=== PATIENT | male | born 1995 | race Caucasian/White ===

== ENCOUNTER 2021-03-20 16:42 | Outpatient (REF) | payer OTHER, SELFPAY | END 2021-03-20 16:43 | disposition home or self-care (01) | LOC: HO.LNP 16:42 | PROVIDERS: Visit Provider Physician Assistant Medical | DX: Z20.822 Contact with and (suspected) exposure to COVID-19 (principal) | CPT/HCPCS: U0003; U0005 ==

== ENCOUNTER 2021-04-05 07:45 | Emergency (ER) | payer SELFPAY ==
--- NOTE | ~2021-04-05 | US_ITS ---
EXAMINATION: US ABDOMEN LIMITED CLINICAL INFORMATION: Right upper quadrant pain worse with eating. COMPARISON: None TECHNIQUE: Real-time imaging of the right upper quadrant abdominal viscera. FINDINGS: PANCREAS: Visualized portions of the increase unremarkable, the tail is obscured by overlying bowel gas. LIVER: The liver is normal in size. The liver contour is normal. Slightly increased hepatic echogenicity suggesting hepatic steatosis. No focal hepatic lesion. There is no intrahepatic biliary duct dilatation seen. GALLBLADDER: Normal. The gallbladder is physiologically distended without evidence of stones, sludge, polyps, wall thickening or pericholecystic fluid. Sonographic Rivas sign is negative. COMMON BILE DUCT: Normal in caliber measuring 0.3 cm in diameter. RIGHT KIDNEY: Normal. No hydronephrosis. No renal calculi or focal parenchymal lesions. The kidney measures 9.1 cm in maximum dimension. FREE FLUID: None. US/US abdomen limited IMPRESSION: Slightly increased hepatic echogenicity suggesting hepatic steatosis.
[2021-04-05 08:18] VITALS: BP 126/86; PULSE 81; RESP 16; TEMP 36.9; O2SAT 98; BMI 30.2
--- NOTE | 2021-04-05 15:01 | ED_ITS ---
HPI - Abdominal Pain General Chief Complaint: Abdominal Pain Stated Complaint: ABD PAIN Time Seen by Provider: 04/05/21 14:59 Source: patient Mode of arrival: ambulatory Limitations: no limitations History of Present Illness HPI narrative: 25-year-old male past medical history significant for hepatic steatosis, HTN, anxiety, IBS presents the emergency department with right upper quadrant pain x4 days progressively worsening with associated nausea. Patient tells me that the pain is worse with eating and drinking. He tells me that he has a remote history of heavy alcohol use. He has not drank for the past year. He also has a history of prescription medication abuse. Patient tells me that the pain is dull, intermittent and at times it is severe. He tells me right now the pain is a 4 5/10. He denies chest pain, shortness of breath, fevers, chills, vomiting, headache, dizziness, dysuria, hematuria, hesitancy, urgency. MD elicited complaint: abdominal pain Pertinent past history: other (Hepatic steatosis, alcohol abuse) Onset (ago): day(s) (4) Pain Consistency: intermittent Location: RUQ Severity: mild Pain scale (0-10): 5 Quality: sharp and dull Radiation: none Migration to: no migration Exacerbating factors: nothing Relieving factors: nothing Associated symptoms: nausea Related Data Home Medications Medication Instructions Recorded Confirmed lisinopril 40 mg tablet 40 mg PO DAILY 03/20/21 03/20/21 metoprolol succinate 50 mg 75 mg PO DAILY 03/20/21 03/20/21 tablet,extended release 24 hr omeprazole 20 mg capsule,delayed 20 mg PO DAILY 03/20/21 03/20/21 release Previous Rx's Medication Instructions Recorded ondansetron 4 mg disintegrating 4 mg PO Q8H PRN #15 tab 04/05/21 tablet Allergies Allergy/AdvReac Type Severity Reaction Status Date / Time No Known Allergies Allergy Verified 03/20/21 12:36 Review of Systems Review of Systems Constitutional : No Weight loss, No Fever, No Chills, No Fatigue, No Malaise ENT/Mouth : No sore throat, No Rhinorrhea Eyes: No Eye Pain, No Swelling, No Redness Cardiovascular : No Chest Pain, No SOB, No Dyspnea on Exertion, No Orthopnea, No Edema, No Palpitations Respiratory : No Cough, No Sputum, No Wheezing Gastrointestinal : + Nausea, No Vomiting, No Diarrhea, No Constipation, + abdominal Pain, No Hematochezia, No Melena Genitourinary : No Dysuria, No Urinary Frequency, No Hematuria, Musculoskeletal : No joint pain, No Myalgias, No Joint Swelling Skin : No Skin Lesions, No rash Neuro : No Weakness, No Numbness, No Dizziness, No Headache Psych : No Anxiety/Panic, No Depression All other systems reviewed and are negative Yes all other systems are reviewed and are negative Physical Exam Vital Signs: Vital Signs: Last Vital Signs Temp 98.6 F 04/05/21 15:23 Pulse 81 04/05/21 15:23 Resp 18 04/05/21 15:23 BP 132/69 04/05/21 15:23 Pulse Ox 100 04/05/21 15:23 BMI result Body Mass Index 30.2 Vss Appearance: Alert.? Oriented X3.? No acute distress.? Head: Normocephalic, atraumatic, no step-offs or deformities Eyes: Pupils equal, round and reactive to light.? ENT: Pharynx normal.? Neck: Normal inspection.? Neck supple.? CVS: Normal heart rate and rhythm.? Pulses normal.? Respiratory: No respiratory distress.? Breath sounds normal.? Abdomen: Soft and + pain with palpation of right upper quadrant. Neagtive R osving and McBurney's point. Skin: Skin warm and dry.? Normal skin color.? Normal skin turgor.? Extremities: No lower extremity edema.? No calf ttp. 5/5 strength to bilateral upper and lower extremities Back: No midline tenderness, no C-spine tenderness, full range of motion, no CVA tenderness bilaterally Neuro: Oriented X 3.? No motor deficit.? No sensory deficit. Course Reevaluation(s) Reevaluation #1: A slight normocytic anemia is noted, no leukocytosis, no acute electrolyte abnormalities. Transaminases normal. Lipase normal. Urine is clean. Patient's ultrasound significant for hepatic steatosis. Negative Rivas sign, no signs of cholecystitis or cholelithiasis. Patient tells me that he is not had nausea since he was given Zofran. He reports that his pain has improved. He tells me that he thinks this started because he was taking NyQuil daily when he had COVID which may have caused inflammation. I have advised patient to follow-up with GI. I have advised him on warning signs and have given him strict return precautions that have been outlined on his discharge. Patient's history and physical examination are not consistent with acute appendicitis, negative Rovsing negative McBurney's point, negative obturator and psoas. Patient's CRP is normal. No pain to palpation to the right lower quadrant. Patient does not report anorexia, fevers or chills. At this time I feel comfortable with discharge home Time: 16:36 MDM - Abdominal Pain MDM Narrative Medical decision making narrative: 1520 25 yo male pmhx alcohol abuse, prescription pain pill abuse, hepatic steatosis presents to ED w/ RUQ pain & nausea, worse with eating. PE- pain w/ palpation to RUQ . Patient's history and physical examination not consistent with acute cholecystitis or acute appendicitis. Plan labs, US RUQ, UA Medical Records Attestation: I reviewed the patient's medical records. Lab Data Attestation: I reviewed the patient's lab results. Result diagrams: 04/05/21 15:14 04/05/21 15:14 Labs: Lab Results 04/05/21 04/05/21 04/05/21 Range/Units 15:14 15:14 15:31 WBC 7.2 (4.8-10.8) X10*3/uL RBC 4.49 L (4.60-5.80) X10*6/uL Hgb 13.8 L (14.0-18.0) g/dl Hct 40.8 L (42.0-52.0) % MCV 90.9 (80.0-98.0) fL MCH 30.7 (27.0-33.0) pg MCHC 33.8 (31.0-36.0) g/dl RDW 11.8 (11.0-16.0) % Plt Count 368 (160-400) X10*3/uL MPV 9.1 L (9.4-12.4) fL Immature Gran % (Auto) 0.6 H (0.0-0.4) % Neut % (Auto) 53.7 (45-73) % Lymph % (Auto) 36.8 (20-40) % [place] % (Auto) 7.1 (2-11) % Eos % (Auto) 1.5 (0-4) % Baso % (Auto) 0.3 (0-2) % Lymph # (Auto) 2.6 (1.2-4.9) X10*3/uL [place] # (Auto) 0.5 (0.1-1.2) X10*3/uL Eos # (Auto) 0.1 (0.0-0.4) X10*3/uL Baso # (Auto) 0.0 (0.0-0.2) X10*3/uL Abs Immat Gran (auto) 0.04 H (0.00-0.03) X10*3/uL Absolute Neuts (auto) 3.9 (2.0-8.3) x10*3/uL Absolute Nucleated RBC 0.000 (0.0-0.012) X10*3/uL Nucleated RBC % (auto) 0.0 (0.0-0.2) /100WBC Sodium 141 (135-145) mmol/L Potassium 4.0 (3.3-5.1) mmol/L Chloride 106 (96-108) mmol/L Carbon Dioxide 25 (22-29) mmol/L Anion Gap 14 (12-20) BUN 13 (9-16) mg/dL Creatinine 0.77 (0.5-1.4) mg/dL Estim Creat Clear Calc 146.3 Estimated GFR > 60 Random Glucose 91 (60-115) mg/dL Calcium 9.6 (8.4-10.2) mg/dL Magnesium 2.3 (1.6-2.6) mg/dL Total Bilirubin 0.5 (0.0-1.0) mg/dL AST 20 (5-37) U/L ALT 25 (0-40) U/L Alkaline Phosphatase 59 (39-117) U/L C-Reactive Protein 0.20 (< or = 0.50) mg/dL Total Protein 7.4 (6.5-8.0) g/dL Albumin 4.5 (3.5-5.0) g/dL Lipase 16 (8-78) U/L Urine Color YELLOW Urine Appearance CLEAR Urine pH 6.0 (5.0-8.0) Ur Specific [place] 1.025 (1.005-1.025) Urine Protein NEG (NEG-TRACE) MG/DL Urine Glucose (UA) NEG (NEG) MG/DL Urine Ketones NEG (NEG) MG/DL Urine Blood NEG (NEG) Urine Nitrite NEG (NEG) Ur Leukocyte Esterase NEG (NEG) Urine RBC 0-2 (0) /HPF Urine WBC 0-2 (0-4) /HPF Ur Squamous Epith Cells TRACE /LPF Urine Bacteria NONE /LPF Urine Mucus TRACE /LPF Imaging Data US RUQ : Attestation: I personally reviewed and interpreted this imaging study as follows: Radiologist's impression: FINDINGS: PANCREAS: Visualized portions of the increase unremarkable, the tail is obscured by overlying bowel gas. LIVER: The liver is normal in size. The liver contour is normal. Slightly increased hepatic echogenicity suggesting hepatic steatosis. No focal hepatic lesion. There is no intrahepatic biliary duct dilatation seen. GALLBLADDER: Normal. The gallbladder is physiologically distended without evidence of stones, sludge, polyps, wall thickening or pericholecystic fluid. Sonographic Rivas sign is negative. COMMON BILE DUCT: Normal in caliber measuring 0.3 cm in diameter. RIGHT KIDNEY: Normal. No hydronephrosis. No renal calculi or focal parenchymal lesions. The kidney measures 9.1 cm in maximum dimension. FREE FLUID: None. US/US abdomen limited IMPRESSION: Slightly increased hepatic echogenicity suggesting hepatic steatosis. Critical Care Time Critical Care Time Critical Care Time: No Discharge Plan Discharge Clinical Impression: Hepatic steatosis Patient Disposition: Home, Self-Care Additional Instructions: Take your medications as prescribed. If you were prescribed antibiotics today, it is important that you take your medication to their entirety, do not skip any doses, do not finish them early. Follow-up with your primary care provider this week. I provided you information with our GI doctor, you can call and schedule an appointment as necessary Return to the emergency department with new or worsening symptoms. Such as fevers, chills, worsening pain, pain in the right lower quadrant, pain above the belly button, chest pain, shortness of breath, nausea, vomiting, weakness. In case of emergency call 911 Prescriptions: New ondansetron 4 mg tablet,disintegrating 4 mg PO Q8H PRN (Reason: nausea and vomiting) Qty: 15 RF: 0 No Action metoprolol succinate 50 mg tablet extended release 24 hr 75 mg PO DAILY RF: 0 lisinopril 40 mg tablet 40 mg PO DAILY RF: 0 omeprazole 20 mg capsule,delayed release(DR/EC) 20 mg PO DAILY RF: 0 Referrals: Physician,Unknown J [Primary Care Provider] - 2 days Shira Almanza MD [Physician] - 2 days Stand Alone Forms: Work/School Release [facility] Past Medical History Attestation statement: The following information was validated with the patient. Source: old records reviewed and nursing notes reviewed Medical History Fatty liver Generalized anxiety disorder Hypertension Irritable bowel syndrome (IBS) Restless leg syndrome Ulcerative colitis Social History Social History Patient Tobacco Use Status: Former Tobacco user Advance Directives: No Advance Directives Information Provided: Yes
[2021-04-05 15:18] LABS: MANUAL DIFF FLAG NO
[2021-04-05 15:20] LABS: Basophils Percent Auto 0.3 % (0-2); Eosinophils Absolute Auto 0.1 X10*3/uL (0.0-0.4); Eosinophils Percent Auto 1.5 % (0-4); Hematocrit 40.8 % (42.0-52.0); Hemoglobin 13.8 g/dl (14.0-18.0); Imm Gran Abs Auto 0.04 X10*3/uL (0.00-0.03); Imm Gran Pct Auto 0.6 % (0.0-0.4); Lymphocytes Absolute Auto 2.6 X10*3/uL (1.2-4.9); Lymphocytes Percent Auto 36.8 % (20-40); Mean Corpuscular HGB Conc 33.8 g/dl (31.0-36.0); Mean Corpuscular Hemoglobin 30.7 pg (27.0-33.0); Mean Corpuscular Volume 90.9 fL (80.0-98.0); Mean Platelet Volume 9.1 fL (9.4-12.4); Monocytes Absolute Auto 0.5 X10*3/uL (0.1-1.2); Monocytes Percent Auto 7.1 % (2-11); Neutrophils Absolute Auto 3.9 x10*3/uL (2.0-8.3); Neutrophils Percent Auto 53.7 % (45-73); Platelet Count 368 X10*3/uL (160-400); Red Blood Count 4.49 X10*6/uL (4.60-5.80); Red Cell Distribution Width 11.8 % (11.0-16.0); White Blood Count 7.2 X10*3/uL (4.8-10.8)
[2021-04-05 15:23] VITALS: BP 132/69; PULSE 81; RESP 18; TEMP 37; O2SAT 100
[2021-04-05 15:35] LABS: Alanine Aminotransferase 25 U/L (0-40); Albumin Level 4.5 g/dL (3.5-5.0); Alkaline Phosphatase 59 U/L (39-117); Anion Gap 14 (12-20); Aspartate Amino Transferase 20 U/L (5-37); Bilirubin Total 0.5 mg/dL (0.0-1.0); Blood Urea Nitrogen 13 mg/dL (9-16); Calcium 9.6 mg/dL (8.4-10.2); Carbon Dioxide 25 mmol/L (22-29); Chloride 106 mmol/L (96-108); Creatinine Clr Calc Pharmacy 146.3; Estimated Glomerular Filt Rate > 60; Glucose Random 91 mg/dL (60-115); Lipase 16 U/L (8-78); Magnesium 2.3 mg/dL (1.6-2.6); Sodium 141 mmol/L (135-145); Total Protein 7.4 g/dL (6.5-8.0)
[2021-04-05 15:41] LABS: Appearance Urine CLEAR; Color Urine YELLOW; Glucose Urine UA NEG (NEG); Leukocyte Esterase Urine NEG (NEG); Nitrite Urine NEG (NEG); Specific Gravity - Urine 1.025 (1.005-1.025); Urine Blood NEG (NEG); Urine Ketones NEG (NEG); Urine Protein NEG (NEG-TRACE)
[2021-04-05 15:49] LABS: Mucus Urine TRACE /LPF; RBC Urine 0-2 /HPF (0); Squamous Epithelial Cell Urine TRACE /LPF; WBC Urine 0-2 /HPF (0-4)
[2021-04-05] MEDS: ondansetron HCL 4 MG/2 ML VIAL IVPUSH (15:53)
== END 2021-04-05 17:00 | disposition home or self-care (01) ==
PROVIDERS: Physician Assistant; Emergency Provider Emergency Medicine
DX: K76.0 Fatty (change of) liver, not elsewhere classified (principal); R10.11 Right upper quadrant pain; I10 Essential (primary) hypertension; F10.10 Alcohol abuse, uncomplicated; Y90.9 Presence of alcohol in blood, level not specified; F11.10 Opioid abuse, uncomplicated
CPT/HCPCS: 36415; 76705; 80053; 81001; 83690; 83735; 85025; 86140; 96374; 99283; 99284; J2405